=== PATIENT | male | born 1935 | race Two or more races ===

== ENCOUNTER 2019-06-24 22:17 | Emergency (ER) | payer OTHER ==
[~2019-06-24] VITALS: Ht 162.6 cm; Wt 68.0 kg
[~2019-06-24 22:17] MED LIST: HYZAAR 50/12.51 TAB PO; LIPITOR40 MG PO
[2019-06-25] MEDS ORDERED: DUI500 PO (01:26)
== END 2019-06-25 01:19 | disposition home or self-care (01) ==
LOC: ER 22:17
DX: S61.012A Laceration without foreign body of left thumb without damage to nail, initial encounter (principal); S61.214A Laceration without foreign body of right ring finger without damage to nail, initial encounter; W25.XXXA Contact with sharp glass, initial encounter; Y93.89 Activity, other specified; Y92.018 Other place in single-family (private) house as the place of occurrence of the external cause; Y99.8 Other external cause status